=== PATIENT | female | born 1960 | race Caucasian/White ===

== ENCOUNTER 2021-01-10 17:06 | Outpatient (CLI) | payer BC, OTHER | END 2021-01-10 23:59 | disposition home or self-care (01) | LOC: RAD 17:06 | PROVIDERS: ATTEND Family Medicine | DX: I25.10 Atherosclerotic heart disease of native coronary artery without angina pectoris (principal); J98.4 Other disorders of lung; M47.814 Spondylosis without myelopathy or radiculopathy, thoracic region; F17.210 Nicotine dependence, cigarettes, uncomplicated | CPT/HCPCS: 71250 ==

== ENCOUNTER 2021-01-31 11:08 | Outpatient (CLI) | payer BC, OTHER ==
[2021-01-31 11:42] LABS: *BILIRUBIN,URIN NEGATIVE (NEGATIVE); *BLOOD, URINE NEGATIVE (NEGATIVE); *CLARITY,URINE CLEAR (CLEAR); *COLOR,URINE YELLOW (YELLOW); *KETONES,URINE NEGATIVE (NEGATIVE); LEUKOCYTE ESTERASE ,URINE NEGATIVE (NEGATIVE); NITRITE, URINE NEGATIVE (NEGATIVE); UGLUCOSE NEGATIVE (NEGATIVE)
== END 2021-01-31 23:59 | disposition home or self-care (01) ==
LOC: LAB 11:08
PROVIDERS: ATTEND Family Medicine
DX: R31.9 Hematuria, unspecified (principal); R19.7 Diarrhea, unspecified
CPT/HCPCS: 36415; 86677

== ENCOUNTER → 2021-06-21 | Outpatient (CLI) | payer BC, OTHER | END | disposition home or self-care (01) | LOC: LAB 08:15 | PROVIDERS: ATTEND Internal Medicine Gastroenterology | DX: Z01.812 Encounter for preprocedural laboratory examination (principal); Z20.822 Contact with and (suspected) exposure to COVID-19 ==

== ENCOUNTER 2021-06-24 11:00 | Day surgery (SDC) | payer BC, OTHER ==
[~2021-06-24 11:00] MED LIST: CEphaleXIN 500 MG CAPSULE ONE
[2021-06-24] MEDS ORDERED: LIDOCAINE-MPF 2% 5 ML VIAL IJ ONE (11:01)
[2021-06-24] MEDS ORDERED: PROPOFOL 200 MG/20 ML BOTTLE IV ONE (11:01)
== END 2021-06-24 14:06 | disposition home or self-care (01) ==
LOC: DS 11:00
PROVIDERS: ATTEND Internal Medicine Gastroenterology
DX: Z12.11 Encounter for screening for malignant neoplasm of colon (principal); K64.8 Other hemorrhoids; K63.5 Polyp of colon; K63.89 Other specified diseases of intestine; J43.9 Emphysema, unspecified; M19.90 Unspecified osteoarthritis, unspecified site; J45.909 Unspecified asthma, uncomplicated; E11.9 Type 2 diabetes mellitus without complications; E03.9 Hypothyroidism, unspecified; D64.9 Anemia, unspecified; Z79.899 Other long term (current) drug therapy; Z98.890 Other specified postprocedural states
CPT/HCPCS: 36415; 45380; 71045; 80053; 81001; 85025; 85730; 88305; 93005; J3490; J7120; A4217; A4663